=== PATIENT | female | born 1945 | race Caucasian/White ===

== ENCOUNTER 2017-07-20 07:53 | Day surgery (SDC) | payer OTHER ==
[2017-07-20] VITALS (14 sets, daily range): BP systolic 134–157; BP diastolic 71–98; PULSE 72–98; RESP 14–18; TEMP 97.5–98; O2SAT 94–98
[~2017-07-20] VITALS: Ht 167.6 cm; Wt 89.1 kg
[2017-07-20] MEDS ORDERED: VITA10002 PO (08:23)
[2017-07-20] MEDS ORDERED: MULT-65 PO (08:23)
[2017-07-20] MEDS ORDERED: MELO7.5T4 PO (08:23)
[2017-07-20] MEDS ORDERED: TRAM50TA PO (08:23)
[2017-07-20] MEDS ORDERED: CART300C PO (08:23)
[2017-07-20] MEDS ORDERED: APIX5TAB PO (08:23)
[2017-07-20] MEDS ORDERED: LOSA50TA PO (08:23)
[2017-07-20] MEDS ORDERED: CYMB60CA PO (08:23)
[2017-07-20] MEDS ORDERED: FURO1TAB62 PO (08:23)
[2017-07-20] MEDS ORDERED: LEVO175T2 PO (08:23)
[2017-07-20] MEDS ORDERED: TRIA37.5 PO (08:23)
[2017-07-20] MEDS ORDERED: METO25TA3 PO (08:23)
[2017-07-20] MEDS ORDERED: PROPOFOL 200 MG/20 ML AMP IV ONE (08:27)
[2017-07-20] MEDS ORDERED: ONDANSETRON HCL 4 MG/2 ML VIAL IV PUSH ONE (08:27)
[2017-07-20] MEDS ORDERED: LIDOCAINE HCL 1% PF 5 ML AMPULE OTHER ONE (08:27)
[2017-07-20] MEDS ORDERED: ROCURONIUM INJ 50 MG/5 ML SYRINGE IV PUSH ONE (08:27)
[2017-07-20] MEDS ORDERED: HEPARIN-D5W 25,000 U/250 ML 250 ML ONE (08:46)
[2017-07-20] MEDS ORDERED: ISOPROTERENOL HCL 1 MG/5 ML AMP ONE (08:46)
[2017-07-20] MEDS ORDERED: HEPARIN SODIUM - IV 10,000 UNITS/10 ML VIAL ONE (08:47)
[2017-07-20] MEDS ORDERED: PROTAMINE SULFATE 50 MG/5 ML VIAL ONE (08:47)
[2017-07-20] MEDS ORDERED: SODIUM CHLORID 0.9% 500 ML INJ 500 ML IV SCH (09:00)
[2017-07-20] MEDS ORDERED: HEPARIN-NS/PF INJ 2,000 ML ONE (09:13)
[2017-07-20] MEDS ORDERED: LEVOFLOXACIN 500 MG PREMIX INJ 100 ML IV ONE ×2 (09:13→09:15)
[2017-07-20] MEDS ORDERED: CHLORHEXIDINE GLUCONATE 2 % 1 PACK (2 CLOTHS) TOPICAL PRN (09:15)
[2017-07-20] MEDS ORDERED: INSULIN HUMAN REGULAR 1,000 UNITS/10 ML VIAL SQ PRN (09:15)
[2017-07-20] MEDS ORDERED: POVIDONE IODINE 5% (ANTISEPSIS KIT) 4 APPLICATIONS EACH NARE PRN (09:15)
[2017-07-20] MEDS ORDERED: METOPROLOL TARTRATE 25 MG TAB PO PRN (09:15)
[2017-07-20] MEDS ORDERED: LACTATED RINGER'S 1000 ML IV PRN (09:15)
[2017-07-20] MEDS ORDERED: LORazepam 1 MG TAB SL SCH (09:15)
[2017-07-20] MEDS ORDERED: SODIUM CHLORID 0.9% 500 ML IV PRN (09:15)
[2017-07-20 09:22] LABS: AUTOMATED NEUTROPHIL # 2.7 TH/MM3 (1.8-7.7); BASOPHIL # 0.1 TH/MM3 (0-0.2); BASOPHIL % 1.1 % (0.0-2.0); EOSINOPHIL # 0.2 TH/MM3 (0-0.4); EOSINOPHIL % 3.9 % (0.0-4.0); HEMATOCRIT 43.9 % (35.0-46.0); HEMOGLOBIN 14.8 GM/DL (11.6-15.3); LYMPH % 28.6 % (9.0-44.0); LYMPHOCYTE # 1.4 TH/MM3 (1.0-4.8); MEAN CELL VOLUME 88.6 FL (80.0-100.0); MEAN CORPUSCULAR HEMOGLOBIN 29.9 PG (27.0-34.0); MEAN CORPUSCULAR HGB CONC 33.8 % (32.0-36.0); MEAN PLATELET VOLUME 8.4 FL (7.0-11.0); MONO % 10.2 % (0.0-8.0); MONOCYTE # 0.5 TH/MM3 (0-0.9); NEUT % 56.2 % (16.0-70.0); PLATELET COUNT 190 TH/MM3 (150-450); RED BLOOD COUNT 4.95 MIL/MM3 (4.00-5.30); RED CELL DISTRIBUTION WIDTH 15.4 % (11.6-17.2); WHITE BLOOD COUNT 4.7 TH/MM3 (4.0-11.0)
[2017-07-20 09:29] LABS: PROTHROMBIN TIME - PATIENT 10.7 SEC (9.8-11.6)
[2017-07-20 09:31] LABS: BICARBONATE 26.8 MEQ/L (21.0-32.0); CALCIUM 8.9 MG/DL (8.5-10.1); CREATININE 0.78 MG/DL (0.50-1.00)
--- NOTE | 2017-07-20 11:50 | CATHPROC ---
[place] HIS Report Study Information Study Number Admission Scheduled Start Study Start [id number] Jul 20 2017 7:53AM 07/20/2017 Jul 20 2017 8:31AM [place] Service Electrophysiology Study Admit Source Facility Department Other [facility] Physician and Clinical Staff Initial Avery Chase [employer]ulatory Officers Gina Renner,WEB PUBLISHER Other Anesthesia, BUSHER HELPER Recorder Alin Bloom,JUAN JOSE Recorder Beth Colunga RN Scrub Bimal Barnes,RT(R) Procedures Performed Procedure Location (Site) Vessel Name Cardioversion ICE CATHETER INSERT RA Atruim RF Ablation LT. ATRIUM LT. ATRIUM Equipment Time Trekking Guide Description Size Mfg Part Number Used/Scraped NEEDLE, TRANSSEPTAL NRG 98 09:22 [facility] [id number] Used C1 [employer]/ EP 09:22 KIT, TRANSDUCER / AFIB [id number] Used PACER [id number] CATHETER, TACTICATH ABLAT BUNDLE 09:22 BUNDLE-[facility]. MASSIMO Used 65 BUNDLE *[id number]- BUNDLE [id number] CATHETER, FR7 OPTIMA SPIRAL 09:22 BUNDLE-[facility]. M[facility]IMO FR7 *[id number]- Used BUNDLE BUNDLE [id number] 09:22 BUNDLE-[employer] [employer]IMO CATHETER, JSN, QUAD BUNDLE FR 5 *[id number]- Used BUNDLE [id number] 09:22 BUNDLE-[employer]. [employer]IMO CATHETER, JSN, QUAD BUNDLE FR 5 *[id number]- Used BUNDLE [id number] SET, COOL POINT TUBING 09:22 BUNDLE-[employer]. MASSIMO *[id number]- Used BUNDLE BUNDLE SHEATH, FR8.5 STEERABLE SM 09:22 BUNDLE-[facility]. MASSIMO 71CM [id number] Used 71CM BUNDLE COVER, TRANSDUCER CABLE 09:22 Umami [id number] Used ACUNAV 09:22 CORDIS/PACER SHEATH, FR10 SUGEY 11CM FR 10 [id number] Used 09:22 CORDIS/PACER SHEATH, FR9 SUGEY 11CM FR 9 [id number] Used [id number] 09:22 MEDLINE INDUSTRIES PACK, CCL CUSTOM * Used *[id number] 09:22 MEDLINE PACER COLON, LIMB * 2530 *[id number] Used [id number] 09:22 [employer] MEDICAL SHEATH, FR4.5 PRELUDE 11CM FR 4.5 Used [id number] 09:22 NAMIC TUBING, HIGH PRESSURE 48" 48" Used *[id number] 09:22 NAMIC TUBING, HIGH PRESSURE 48" 48" Used *[id number] 09:22 [employer]UM[employer] MEDICAL BLANKET,WARM AIR CCL * Used *[id number] 09:22 [facility] MEDICAL ELECTRODE KIT, YAIR X SURFACE * [id number] Used [id number] 09:22 [facility] MEDICAL SHEATH, EPS, FR6 FAST CATH FR 6 Used *[id number] 09:22 [facility] MEDICAL SHEATH, EPS, FR7 FAST CATH FR 7 [id number] Used [id number] 09:22 [facility] MEDICAL SHEATH, EPS, FR8 FAST CATH FR 8 Used *[id number] CATHETER, ACUNAV FR10 ICE [id number] 10:15 BEVERLEY FR 10 Used (BEVERLEY) *[id number] [facility] PAD, ELECTROSURGICAL 09:22 * [id number] *[id number] Used SURGICAL GROUNDING (BLUE) History: Risk Factors Hypertension Yes Chronic Lung Disease Medication Medication Total Dose (Bolus/Oral) Medication Total Dosage/Unit 1% XYLOCAINE 40 mL HEPARIN 72570 units Medications (Bolus/Oral) Medication Time Given Dosage/Unit Administered By Reason 07/20/2017 10:07:14 1% XYLOCAINE 20 mL Avery Shelley AM 20 mL 1% XYLOCAINE given in lab by Avery Shelley in Left Groin via Subcutaneous. 07/20/2017 10:10:13 1% XYLOCAINE 20 mL Avery Shelley AM 20 mL 1% XYLOCAINE given in lab by Avery Shelley in Right Groin via Subcutaneous. 07/20/2017 10:16:00 HEPARIN 36755 units Anesthesia, BUSHER HELPER [place] [address] units HEPARIN given in lab by Anesthesia, BUSHER HELPER via Peripheral IV. Ordered by Avery Shelley. Kimberly son: As per physicians verbal order. 07/20/2017 11:09:00 HEPARIN 1000 units Anesthesia, BUSHER HELPER As per physicians verbal order AM 1000 units HEPARIN given in lab by Anesthesia, BUSHER HELPER via Peripheral IV. Ordered by vAery Shelley. Reas on: As per physicians verbal order. Medication (Drip) Medication Time Given Dosage/Unit Concentration/Unit Diluent (ml) Solution 07/20/2017 11:30:08 ISUPREL 20 mcg/min 1 mg 250 NaCl .9 AM 20 mcg/min ISUPREL given in lab by Anesthesia, BUSHER HELPER via Peripheral IV. Pump/Drip Flow = 300 ml/hr usi ng NaCl .9 with a concentration of 1 mg in 250 ml. Ordered by Avery Shelley. Initial Case Assessment Cardiovascular HR Rhythm NIBP Chest Pain 87 af 196/80 0 Edema Present Skin color Skin None Normal Warm Dry Circulatory - Right Pulses Dorsalis Pedis 1 Scale (0,1,2,3,4,d) Circulatory - Left Pulses Dorsalis Pedis 1 Scale (0,1,2,3,4,d) Circulatory - Lower Extremities Color Lower Right Color Lower Left Normal Normal Neurological State Oriented to time-place- Alert Moves all extremities person Respiration - General Respiration Rate SpO2 (%) (B/min) 18 99 Chronological Log Time Study Chronological Log 9::25 Patient arrived via Bed. 9::26 Patient Name, D.O.B, / Armband Verified By R.N. 9:: Consent signed by the physician and the patient and verified by the [facility] staff. 9:09:27 Pre-op and post- op instructions given; patient acknowledges understanding of instructions. 9:09:28 Verbal Stimulation=2 Physical Stimulation=2 Airway=2 Respiration=2 TOTAL=8. (0=absent, 1=li mited, 2=present) 9:09:38 Patient has been NPO for More than 6Hrs. 9:09:38 Skin Breakdown- r wrist post surgical site w scabs 9:10:00 Patient Warmer Placed on the Table. 9:10:00 Disposable Defibrillator Pads Placed On Patient. 9:10:01 Alfredo Prominences Protected 9:10:03 A # 20 IV was noted in the Antecubital (right). Grade = 0 9:10:04 A # 20 IV was noted in the Antecubital (left). Grade = 0 9:10:05 History and physical on the chart or being dictated. 9:19:54 Table restraints applied according to hospital policy 9:22:32 Anesthesia at bedside. Assumes care of patient. See Flow sheet for meds and vitals Assessment: Initial Case, HR=87 BPM, Rhythm=af, JGAO=375/80 mmhg, Chest Pain=0, Edema=None, Col or=Normal, Skin = Warm, Dry Right Pulses: Abel Ped=1 Left Pulses: Abel Ped=1 9:36:07 Lower Right Extremities: Color=Normal Lower Left Extremities: Color=Normal Neurological: State=Alert, Ox3, SALINAS Respiration: Resp=18 B/min, SpO2=99 % 9:37:25 Table restraints applied according to hospital policy 9:37:41 Anesthestist present for intubation 9:37:54 St Massmio rep present 9:38:09 Right groin prepped with 2% chlorhexidine, and draped after a 3 min. waiting time. 9:38:39 MD paged 9:42:43 Reference ECG taken 9:59:07 MD arrived. Time Out. Correct patient, procedure, procedure equipment, site and side verified with physicia n present. Time 10:03:00 concurred by MD, individual staff and BUSHER HELPER. Time Out #2 - Consents verified, patient in correct position, all results are labled and displa yed, safety precautions 10:03:29 taken, antibiotics administered. Time out concurred by MD, individual staff and BUSHER HELPER in procedu re 10:03:45 Case Start 10:03:54 JANAK in progress. 10:06:04 Janak complete 10:07:14 20 mL 1% XYLOCAINE given in lab by Avery Shelley in Left Groin via Subcutaneous. 10:07:21 Vascular access was obtained in the Fem Vein (left). 10:07:24 Vascular access was obtained in the Fem Vein (left). 10:07:28 Vascular access was obtained in the Fem Vein (left). 10:07:38 Vascular access was obtained in the Fem Art (left). 10:07:50 A SHEATH, FR4.5 PRELUDE 11CM FR 4.5 was advanced into the Fem Art (left) using the Modified Seldinger technique. 10:08:35 A SHEATH, EPS, FR6 FAST CATH FR 6 was advanced into the Fem Vein (left) using the Modified Seldinger technique. 10:08:43 A SHEATH, EPS, FR7 FAST CATH FR 7 was advanced into the Fem Vein (left) using the Modified Seldinger technique. 10:08:51 A SHEATH, FR10 SUGEY 11CM FR 10 was advanced into the Fem Vein (left) using the Modified S eldinger technique. 10:10:13 20 mL 1% XYLOCAINE given in lab by Avery Shelley in Right Groin via Subcutaneous. 10:10:49 Vascular access was obtained in the Fem Vein (right). 10:10:54 A SHEATH, EPS, FR8 FAST CATH FR 8 was advanced into the Fem Vein (right) using the Modified Seldinger technique. A SHEATH, FR8.5 STEERABLE SM 71CM BUNDLE 71CM was exchanged in the Fem Vein (right). This was n ecessary in 10:12:17 order for catheter support. A CATHETER, JSN, QUAD BUNDLE FR 5 was advanced vis Fem Vein (left) and placed in the CS. Placem ent was visually 10:13:00 confirmed under fluoroscopy. A CATHETER, JSN, QUAD BUNDLE FR 5 was advanced vis Fem Vein (left) and placed in the HIS. Place ment was 10:13:48 visually confirmed under fluoroscopy. 10:14:32 CATHETER, ACUNAV FR10 ICE (Last Guide) FR 10 Was Postioned. 10:15:31 [place] in 10:15:50 A eps was advanced to the right atrium and passed through the septal wall to [place]. 95[address] units HEPARIN given in lab by Anesthesia, BUSHER HELPER via Peripheral IV. Ordered by Zain Shelley Reason: As per 10:16:00 physicians verbal order. 10:16:30 [place] out A CATHETER, FR7 OPTIMA SPIRAL BUNDLE FR7 was advanced vis Fem Vein (right) and placed in the L A. Placement 10:17:00 was visually confirmed under fluoroscopy. Mapping in progress. 10:21:55 Activated Clotting Time Drawn 10:30:01 ACT (Normal Range 90-180) = 436 10:34:18 Mapping complete. Catheter was removed A CATHETER, TACTICATH ABLAT 65 BUNDLE was advanced vis Fem Vein (right) and placed in the LA. Placement was 10:34:53 visually confirmed under fluoroscopy. 10:35:03 RF Ablation of the LT. ATRIUM with a CATHETER, TACTICATH ABLAT 65 BUNDLE. 10:45:49 Activated Clotting Time Drawn 10:53:06 ACT (Normal Range 90-180) = 399 11:00:47 Activated Clotting Time Drawn 11:07:44 ACT (Normal Range 90-180) = 342 1000 units HEPARIN given in lab by Anesthesia, BUSHER HELPER via Peripheral IV. Ordered by Zain Shelley Reason: As per 11:09:00 physicians verbal order. 11:24:37 Ablation Catheter was removed 11:25:25 Activated Clotting Time Drawn 11:27:03 ECG rhythm of AF noted. Patient cardioverted at 200 joules. Success synch. SR noted post. 20 mcg/min ISUPREL given in lab by Anesthesia, BUSHER HELPER via Peripheral IV. Pump/Drip Flow = 300 ml /hr using NaCl .9 11:30:08 with a concentration of 1 mg in 250 ml. Ordered by Avery Shelley. 11:32:52 ACT (Normal Range 90-180) = 386 11:40:28 isuprel off 11:46:10 Catheter(s) removed without difficulty A SHEATH, FR9 SUGEY 11CM FR 9 was exchanged in the Fem Vein (right). This was necessary in or mariah to achieve 11:48:36 vascular hemostasis. 11:49:05 Case End 11:49:09 No case complications noted. 11:49:14 Holding Area notified of successful intervention. 12:10:00 Patient moved to [facility] End Study - Contrast Media Used In Study Contrast Total Opened (mL) Total Used (mL) Total Wasted (mL) Unspecified 0 0 0 End Study - Radiation Exposure Fluoro Time (minutes) 0.4 End Study - Patient Disposition Complications Transferred To Interventional Outcome No Telemetry Bed successful
--- NOTE | 2017-07-20 11:50 | CATHPROC ---
[place] HIS Report Study Information Study Number Admission Scheduled Start Study Start [id number] Jul 20 2017 7:53AM 07/20/2017 Jul 20 2017 8:31AM [place] Service Electrophysiology Study Admit Source Facility Department Other [facility] Physician and Clinical Staff Initial Avery Chase Pit Steward Gina Renner,SENIOR WEB ARCHITECT Other Anesthesia, DIRECTOR ADVANCED Recorder Alin Bloom,JUAN JOSE Recorder Beth Colunga RN Scrub Bimal Barnes,RT(R) Procedures Performed Procedure Location (Site) Vessel Name Cardioversion ICE CATHETER INSERT RA Atruim RF Ablation LT. ATRIUM LT. ATRIUM Equipment Time Process Developer Description Size Mfg Part Number Used/Scraped NEEDLE, TRANSSEPTAL NRG 98 09:22 [facility] [id number] Used C1 [employer]/ EP 09:22 KIT, TRANSDUCER / AFIB [id number] Used PACER [id number] CATHETER, TACTICATH ABLAT BUNDLE 09:22 BUNDLE-[facility]. MASSIMO Used 65 BUNDLE *[id number]- BUNDLE [id number] CATHETER, FR7 OPTIMA SPIRAL 09:22 BUNDLE-[facility]. MASSIMO FR7 *[id number]- Used BUNDLE BUNDLE [id number] 09:22 BUNDLE-[employer]. MASSIMO CATHETER, JSN, QUAD BUNDLE FR 5 *[id number]- Used BUNDLE [id number] 09:22 BUNDLE-[employer]. MASSIMO CATHETER, JSN, QUAD BUNDLE FR 5 *[id number]- Used BUNDLE 20152-HKIPUM SET, COOL POINT TUBING 09:22 BUNDLE-[employer]. MASSIMO *[id number]- Used BUNDLE BUNDLE SHEATH, FR8.5 STEERABLE SM 09:22 BUNDLE-[employer]. MASSIMO 71CM [id number] Used 71CM BUNDLE COVER, TRANSDUCER CABLE 09:22 [employer] [id number] Used ACUNAV 09:22 CORDIS/PACER SHEATH, FR10 SUGEY 11CM FR 10 [id number] Used 09:22 CORDIS/PACER SHEATH, FR9 SUGEY 11CM FR 9 [id number] Used [id number] 09:22 MEDLINE [employer] PACK, CCL CUSTOM * Used *[id number] 09:22 MEDLINE PACER COLON, LIMB * 2530 *[id number] Used [id number]- 09:22 [employer] MEDICAL SHEATH, FR4.5 PRELUDE 11CM FR 4.5 Used [id number] [id number] 09:22 NAMIC TUBING, HIGH PRESSURE 48" 48" Used *[id number] 09:22 NAMIC TUBING, HIGH PRESSURE 48" 48" Used *[id number] 09:22 [employer] MEDICAL BLANKET,WARM AIR CCL * Used *[id number] 09:22 [facility] MEDICAL ELECTRODE KIT, YAIR X SURFACE * [id number] Used [id number] 09:22 [facility] MEDICAL SHEATH, EPS, FR6 FAST CATH FR 6 Used *[id number] 09:22 [facility] MEDICAL SHEATH, EPS, FR7 FAST CATH FR 7 [id number] Used 826735 09:22 [facility] MEDICAL SHEATH, EPS, FR8 FAST CATH FR 8 Used *[id number] CATHETER, ACUNAV FR10 ICE [id number] 10:15 BEVERLEY FR 10 Used (BEVERLEY) *[id number] [facility] PAD, ELECTROSURGICAL 09:22 * [id number] *[id number] Used SURGICAL GROUNDING (BLUE) History: Risk Factors Hypertension Yes Chronic Lung Disease Medication Medication Total Dose (Bolus/Oral) Medication Total Dosage/Unit 1% XYLOCAINE 40 mL HEPARIN 96609 units Medications (Bolus/Oral) Medication Time Given Dosage/Unit Administered By Reason 07/20/2017 10:07:14 1% XYLOCAINE 20 mL Avery Shelley AM 20 mL 1% XYLOCAINE given in lab by Avery Shelley in Left Groin via Subcutaneous. 07/20/2017 10:10:13 1% XYLOCAINE 20 mL Avery Shelley AM 20 mL 1% XYLOCAINE given in lab by Avery Shelley in Right Groin via Subcutaneous. 07/20/2017 10:16:00 HEPARIN 63011 units Anesthesia, DIRECTOR ADVANCED [place] [address] units HEPARIN given in lab by Anesthesia, DIRECTOR ADVANCED via Peripheral IV. Ordered by Avery Shelley. Kimberly son: As per physicians verbal order. 07/20/2017 11:09:00 HEPARIN 1000 units Anesthesia, DIRECTOR ADVANCED As per physicians verbal order AM 1000 units HEPARIN given in lab by Anesthesia, DIRECTOR ADVANCED via Peripheral IV. Ordered by Avery Shelley. Reas on: As per physicians verbal order. Medication (Drip) Medication Time Given Dosage/Unit Concentration/Unit Diluent (ml) Solution 07/20/2017 11:30:08 ISUPREL 20 mcg/min 1 mg 250 NaCl .9 AM 20 mcg/min ISUPREL given in lab by Anesthesia, DIRECTOR ADVANCED via Peripheral IV. Pump/Drip Flow = 300 ml/hr usi ng NaCl .9 with a concentration of 1 mg in 250 ml. Ordered by Avery Shelley. Initial Case Assessment Cardiovascular HR Rhythm NIBP Chest Pain 87 af 196/80 0 Edema Present Skin color Skin None Normal Warm Dry Circulatory - Right Pulses Dorsalis Pedis 1 Scale (0,1,2,3,4,d) Circulatory - Left Pulses Dorsalis Pedis 1 Scale (0,1,2,3,4,d) Circulatory - Lower Extremities Color Lower Right Color Lower Left Normal Normal Neurological State Oriented to time-place- Alert Moves all extremities person Respiration - General Respiration Rate SpO2 (%) (B/min) 18 99 Chronological Log Time Study Chronological Log 9::25 Patient arrived via Bed. 9::26 Patient Name, D.O.B, / Armband Verified By R.N. 9:: Consent signed by the physician and the patient and verified by the [facility] staff. 9:09:27 Pre-op and post- op instructions given; patient acknowledges understanding of instructions. 9:09:28 Verbal Stimulation=2 Physical Stimulation=2 Airway=2 Respiration=2 TOTAL=8. (0=absent, 1=li mited, 2=present) 9:09:38 Patient has been NPO for More than 6Hrs. 9:09:38 Skin Breakdown- r wrist post surgical site w scabs 9:10:00 Patient Warmer Placed on the Table. 9:10:00 Disposable Defibrillator Pads Placed On Patient. 9:10:01 Alfredo Prominences Protected 9:10:03 A # 20 IV was noted in the Antecubital (right). Grade = 0 9:10:04 A # 20 IV was noted in the Antecubital (left). Grade = 0 9:10:05 History and physical on the chart or being dictated. 9:19:54 Table restraints applied according to hospital policy 9:22:32 Anesthesia at bedside. Assumes care of patient. See Flow sheet for meds and vitals Assessment: Initial Case, HR=87 BPM, Rhythm=af, YOTT=991/80 mmhg, Chest Pain=0, Edema=None, Col or=Normal, Skin = Warm, Dry Right Pulses: Abel Ped=1 Left Pulses: Abel Ped=1 9:36:07 Lower Right Extremities: Color=Normal Lower Left Extremities: Color=Normal Neurological: State=Alert, Ox3, SALINAS Respiration: Resp=18 B/min, SpO2=99 % 9:37:25 Table restraints applied according to hospital policy 9:37:41 Anesthestist present for intubation 9:37:54 St Massimo rep present 9:38:09 Right groin prepped with 2% chlorhexidine, and draped after a 3 min. waiting time. 9:38:39 MD paged 9:42:43 Reference ECG taken 9:59:07 MD arrived. Time Out. Correct patient, procedure, procedure equipment, site and side verified with physicia n present. Time 10:03:00 concurred by MD, individual staff and DIRECTOR ADVANCED. Time Out #2 - Consents verified, patient in correct position, all results are labled and displa yed, safety precautions 10:03:29 taken, antibiotics administered. Time out concurred by MD, individual staff and DIRECTOR ADVANCED in procedu re 10:03:45 Case Start 10:03:54 JANAK in progress. 10:06:04 Janak complete 10:07:14 20 mL 1% XYLOCAINE given in lab by Avery Shelley in Left Groin via Subcutaneous. 10:07:21 Vascular access was obtained in the Fem Vein (left). 10:07:24 Vascular access was obtained in the Fem Vein (left). 10:07:28 Vascular access was obtained in the Fem Vein (left). 10:07:38 Vascular access was obtained in the Fem Art (left). 10:07:50 A SHEATH, FR4.5 PRELUDE 11CM FR 4.5 was advanced into the Fem Art (left) using the Modified Seldinger technique. 10:08:35 A SHEATH, EPS, FR6 FAST CATH FR 6 was advanced into the Fem Vein (left) using the Modified Seldinger technique. 10:08:43 A SHEATH, EPS, FR7 FAST CATH FR 7 was advanced into the Fem Vein (left) using the Modified Seldinger technique. 10:08:51 A SHEATH, FR10 SUGEY 11CM FR 10 was advanced into the Fem Vein (left) using the Modified S eldinger technique. 10:10:13 20 mL 1% XYLOCAINE given in lab by Avery Shelley in Right Groin via Subcutaneous. 10:10:49 Vascular access was obtained in the Fem Vein (right). 10:10:54 A SHEATH, EPS, FR8 FAST CATH FR 8 was advanced into the Fem Vein (right) using the Modified Seldinger technique. A SHEATH, FR8.5 STEERABLE SM 71CM BUNDLE 71CM was exchanged in the Fem Vein (right). This was n ecessary in 10:12:17 order for catheter support. A CATHETER, JSN, QUAD BUNDLE FR 5 was advanced vis Fem Vein (left) and placed in the CS. Placem ent was visually 10:13:00 confirmed under fluoroscopy. A CATHETER, JSN, QUAD BUNDLE FR 5 was advanced vis Fem Vein (left) and placed in the HIS. Place ment was 10:13:48 visually confirmed under fluoroscopy. 10:14:32 CATHETER, ACUNAV FR10 ICE ([place]) FR 10 Was Postioned. 10:15:31 Jay in 10:15:50 A eps was advanced to the right atrium and passed through the septal wall [place]. 29[address] units HEPARIN given in lab by Anesthesia, DIRECTOR ADVANCED via Peripheral IV. Ordered by Zain Shelley Reason: As per 10:16:00 physicians verbal order. 10:16:30 Jay out A CATHETER, FR7 OPTIMA SPIRAL BUNDLE FR7 was advanced vis Fem Vein (right) and placed in the L A. Placement 10:17:00 was visually confirmed under fluoroscopy. Mapping in progress. 10:21:55 Activated Clotting Time Drawn 10:30:01 ACT (Normal Range 90-180) = 436 10:34:18 Mapping complete. Catheter was removed A CATHETER, TACTICATH ABLAT 65 BUNDLE was advanced vis Fem Vein (right) and placed in the LA. Placement was 10:34:53 visually confirmed under fluoroscopy. 10:35:03 RF Ablation of the LT. ATRIUM with a CATHETER, TACTICATH ABLAT 65 BUNDLE. 10:45:49 Activated Clotting Time Drawn 10:53:06 ACT (Normal Range 90-180) = 399 11:00:47 Activated Clotting Time Drawn 11:07:44 ACT (Normal Range 90-180) = 342 1000 units HEPARIN given in lab by Anesthesia, DIRECTOR ADVANCED via Peripheral IV. Ordered by Zain Shelley Reason: As per 11:09:00 physicians verbal order. 11:24:37 Ablation Catheter was removed 11:25:25 Activated Clotting Time Drawn 11:27:03 ECG rhythm of AF noted. Patient cardioverted at 200 joules. Success synch. SR noted post. 20 mcg/min ISUPREL given in lab by Anesthesia, DIRECTOR ADVANCED via Peripheral IV. Pump/Drip Flow = 300 ml /hr using NaCl .9 11:30:08 with a concentration of 1 mg in 250 ml. Ordered by Avery Shelley. 11:32:52 ACT (Normal Range 90-180) = 386 11:40:28 isuprel off 11:46:10 Catheter(s) removed without difficulty A SHEATH, FR9 SUGEY 11CM FR 9 was exchanged in the Fem Vein (right). This was necessary in or mariah to achieve 11:48:36 vascular hemostasis. 11:49:05 Case End 11:49:09 No case complications noted. 11:49:14 Holding Area notified of successful intervention. 12:10:00 Patient moved to [facility] End Study - Contrast Media Used In Study Contrast Total Opened (mL) Total Used (mL) Total Wasted (mL) Unspecified 0 0 0 End Study - Radiation Exposure Fluoro Time (minutes) 0.4 End Study - Patient Disposition Complications Transferred To Interventional Outcome No Telemetry Bed successful
--- NOTE | 2017-07-20 11:50 | CATHPROC ---
[employer] HIS Report Study Information Study Number Admission Scheduled Start Study Start [id number] Jul 20 2017 7:53AM 07/20/2017 Jul 20 2017 8:31AM [place] Service Electrophysiology Study Admit Source Facility Department Other [facility] - Manager Merchandising Physician and Clinical Staff Initial Avery Chase Plywood Scarfer Tender Gina Renner,SKIING INSTRUCTOR Other Anesthesia, ENVIRONMENTAL PROFESSIONAL Recorder Alin Bloom,JUAN JOSE Recorder Beth Colunga RN Scrub Bimal Barnes,RT(R) Procedures Performed Procedure Location (Site) Vessel Name Cardioversion ICE CATHETER INSERT RA Atruim RF Ablation LT. ATRIUM LT. ATRIUM Equipment Time [employer] Counselor Description Size Mfg Part Number Used/Scraped NEEDLE, TRANSSEPTAL NRG 98 09:22 [facility] [id number] Used C1 [employer]/ EP 09:22 KIT, TRANSDUCER / AFIB [id number] Used PACER [id number] CATHETER, TACTICATH ABLAT BUNDLE 09:22 BUND[facility] MASSIMO Used 65 BUNDLE *[id number] BUNDLE [id number] CATHETER, FR7 OPTIMA SPIRAL 09:22 BUNDLE-[facility] M[facility]IMO FR7 *[id number] Used BUNDLE BUNDLE [id number] 09:22 BUNDLE-[employer] M[facility]IMO CATHETER, JSN, QUAD BUNDLE FR 5 *[id number]- Used BUNDLE [id number] 09:22 BUNDLE-[employer]. MASSIMO CATHETER, JSN, QUAD BUNDLE FR 5 *[id number]- Used BUNDLE [id number] SET, COOL POINT TUBING 09:22 BUNDLE-[employer]. MASSIMO *[id number] Used BUNDLE BUNDLE SHEATH, FR8.5 STEERABLE SM 09:22 BUNDLE-ST. MASSIMO 71CM [id number] Used 71CM BUNDLE COVER, TRANSDUCER CABLE 09:22 Bet[employer]rand [id number] Used ACUNAV 09:22 CORDIS/PACER SHEATH, FR10 SUGEY 11CM FR 10 [id number] Used 09:22 CORDIS/PACER SHEATH, FR9 SUGEY 11CM FR 9 [id number] Used [id number] 09:22 MED[employer] PACK, CCL CUSTOM * Used *[id number] 09:22 MEDLINE PACER COLON, LIMB * 2530 *[id number] Used [id number] 09:22 [employer] MEDICAL SHEATH, FR4.5 PRELUDE 11CM FR 4.5 Used [id number] 09:22 NAMIC TUBING, HIGH PRESSURE 48" 48" Used *[id number] 09:22 NAMIC TUBING, HIGH PRESSURE 48" 48" Used *[id number] 09:22 [employer] MEDICAL BLANKET,WARM AIR CCL * Used *[id number] 09:22 [facility] MEDICAL ELECTRODE KIT, YAIR X SURFACE * [id number] Used [id number] 09:22 [facility] MEDICAL SHEATH, EPS, FR6 FAST CATH FR 6 Used *[id number] 09:22 [facility] MEDICAL SHEATH, EPS, FR7 FAST CATH FR 7 [id number] Used [id number] 09:22 [facility] MEDICAL SHEATH, EPS, FR8 FAST CATH FR 8 Used *[id number] CATHETER, ACUNAV FR10 ICE [id number] 10:15 BEVERLEY FR 10 Used (BEVERLEY) *[id number] [facility] PAD, ELECTROSURGICAL 09:22 * [id number] *[id number] Used SURGICAL GROUNDING (BLUE) History: Risk Factors Hypertension Yes Chronic Lung Disease Medication Medication Total Dose (Bolus/Oral) Medication Total Dosage/Unit 1% XYLOCAINE 40 mL HEPARIN 41414 units Medications (Bolus/Oral) Medication Time Given Dosage/Unit Administered By Reason 07/20/2017 10:07:14 1% XYLOCAINE 20 mL Avery Shelley AM 20 mL 1% XYLOCAINE given in lab by Avery Shelley in Left Groin via Subcutaneous. 07/20/2017 10:10:13 1% XYLOCAINE 20 mL Avery Shelley AM 20 mL 1% XYLOCAINE given in lab by Avery Shelley in Right Groin via Subcutaneous. 07/20/2017 10:16:00 HEPARIN 92076 units Anesthesia, ENVIRONMENTAL PROFESSIONAL [place] [address] units HEPARIN given in lab by Anesthesia, ENVIRONMENTAL PROFESSIONAL via Peripheral IV. Ordered by Avery Shelley. Kimberly son: As per physicians verbal order. 07/20/2017 11:09:00 HEPARIN 1000 units Anesthesia, ENVIRONMENTAL PROFESSIONAL As per physicians verbal order AM 1000 units HEPARIN given in lab by Anesthesia, ENVIRONMENTAL PROFESSIONAL via Peripheral IV. Ordered by Avery Shelley. Reas on: As per physicians verbal order. Medication (Drip) Medication Time Given Dosage/Unit Concentration/Unit Diluent (ml) Solution 07/20/2017 11:30:08 ISUPREL 20 mcg/min 1 mg 250 NaCl .9 AM 20 mcg/min ISUPREL given in lab by Anesthesia, ENVIRONMENTAL PROFESSIONAL via Peripheral IV. Pump/Drip Flow = 300 ml/hr usi ng NaCl .9 with a concentration of 1 mg in 250 ml. Ordered by Avery Shelley. Initial Case Assessment Cardiovascular HR Rhythm NIBP Chest Pain 87 af 196/80 0 Edema Present Skin color Skin None Normal Warm Dry Circulatory - Right Pulses Dorsalis Pedis 1 Scale (0,1,2,3,4,d) Circulatory - Left Pulses Dorsalis Pedis 1 Scale (0,1,2,3,4,d) Circulatory - Lower Extremities Color Lower Right Color Lower Left Normal Normal Neurological State Oriented to time-place- Alert Moves all extremities person Respiration - General Respiration Rate SpO2 (%) (B/min) 18 99 Chronological Log Time Study Chronological Log 9::25 Patient arrived via Bed. 9::26 Patient Name, D.O.B, / Armband Verified By R.N. 9:: Consent signed by the physician and the patient and verified by the Manager Merchandising staff. 9:09:27 Pre-op and post- op instructions given; patient acknowledges understanding of instructions. 9:09:28 Verbal Stimulation=2 Physical Stimulation=2 Airway=2 Respiration=2 TOTAL=8. (0=absent, 1=li mited, 2=present) 9:09:38 Patient has been NPO for More than 6Hrs. 9:09:38 Skin Breakdown- r wrist post surgical site w scabs 9:10:00 Patient Warmer Placed on the Table. 9:10:00 Disposable Defibrillator Pads Placed On Patient. 9:10:01 Alfredo Prominences Protected 9:10:03 A # 20 IV was noted in the Antecubital (right). Grade = 0 9:10:04 A # 20 IV was noted in the Antecubital (left). Grade = 0 9:10:05 History and physical on the chart or being dictated. 9:19:54 Table restraints applied according to hospital policy 9:22:32 Anesthesia at bedside. Assumes care of patient. See Flow sheet for meds and vitals Assessment: Initial Case, HR=87 BPM, Rhythm=af, JTYD=825/80 mmhg, Chest Pain=0, Edema=None, Col or=Normal, Skin = Warm, Dry Right Pulses: Abel Ped=1 Left Pulses: Abel Ped=1 9:36:07 Lower Right Extremities: Color=Normal Lower Left Extremities: Color=Normal Neurological: State=Alert, Ox3, SALINAS Respiration: Resp=18 B/min, SpO2=99 % 9:37:25 Table restraints applied according to hospital policy 9:37:41 Anesthestist present for intubation 9:37:54 [facility] Massimo rep present 9:38:09 Right groin prepped with 2% chlorhexidine, and draped after a 3 min. waiting time. 9:38:39 MD paged 9:42:43 Reference ECG taken 9:59:07 MD arrived. Time Out. Correct patient, procedure, procedure equipment, site and side verified with physicia n present. Time 10:03:00 concurred by MD, individual staff and ENVIRONMENTAL PROFESSIONAL. Time Out #2 - Consents verified, patient in correct position, all results are labled and displa yed, safety precautions 10:03:29 taken, antibiotics administered. Time out concurred by MD, individual staff and ENVIRONMENTAL PROFESSIONAL in procedu re 10:03:45 Case Start 10:03:54 JANAK in progress. 10:06:04 Janak complete 10:07:14 20 mL 1% XYLOCAINE given in lab by Avery Shelley in Left Groin via Subcutaneous. 10:07:21 Vascular access was obtained in the Fem Vein (left). 10:07:24 Vascular access was obtained in the Fem Vein (left). 10:07:28 Vascular access was obtained in the Fem Vein (left). 10:07:38 Vascular access was obtained in the Fem Art (left). 10:07:50 A SHEATH, FR4.5 PRELUDE 11CM FR 4.5 was advanced into the Fem Art (left) using the Modified Seldinger technique. 10:08:35 A SHEATH, EPS, FR6 FAST CATH FR 6 was advanced into the Fem Vein (left) using the Modified Seldinger technique. 10:08:43 A SHEATH, EPS, FR7 FAST CATH FR 7 was advanced into the Fem Vein (left) using the Modified Seldinger technique. 10:08:51 A SHEATH, FR10 SUGEY 11CM FR 10 was advanced into the Fem Vein (left) using the Modified S eldinger technique. 10:10:13 20 mL 1% XYLOCAINE given in lab by Avery Shelley in Right Groin via Subcutaneous. 10:10:49 Vascular access was obtained in the Fem Vein (right). 10:10:54 A SHEATH, EPS, FR8 FAST CATH FR 8 was advanced into the Fem Vein (right) using the Modified Seldinger technique. A SHEATH, FR8.5 STEERABLE SM 71CM BUNDLE 71CM was exchanged in the Fem Vein (right). This was n ecessary in 10:12:17 order for catheter support. A CATHETER, JSN, QUAD BUNDLE FR 5 was advanced vis Fem Vein (left) and placed in the CS. Placem ent was visually 10:13:00 confirmed under fluoroscopy. A CATHETER, JSN, QUAD BUNDLE FR 5 was advanced vis Fem Vein (left) and placed in the HIS. Place ment was 10:13:48 visually confirmed under fluoroscopy. 10:14:32 CATHETER, ACUNAV FR10 ICE ([employer]) FR 10 Was Postioned. 10:15:31 [place] in 10:15:50 A eps was advanced to the right atrium and passed through the septal [place]. [address] units HEPARIN given in lab by Anesthesia, ENVIRONMENTAL PROFESSIONAL via Peripheral IV. Ordered by Zain Shelley Reason: As per 10:16:00 physicians verbal order. 10:16:30 Henniker out A CATHETER, FR7 OPTIMA SPIRAL BUNDLE FR7 was advanced vis Fem Vein (right) and placed in the L A. Placement 10:17:00 was visually confirmed under fluoroscopy. Mapping in progress. 10:21:55 Activated Clotting Time Drawn 10:30:01 ACT (Normal Range 90-180) = 436 10:34:18 Mapping complete. Catheter was removed A CATHETER, TACTICATH ABLAT 65 BUNDLE was advanced vis Fem Vein (right) and placed in the LA. Placement was 10:34:53 visually confirmed under fluoroscopy. 10:35:03 RF Ablation of the LT. ATRIUM with a CATHETER, TACTICATH ABLAT 65 BUNDLE. 10:45:49 Activated Clotting Time Drawn 10:53:06 ACT (Normal Range 90-180) = 399 11:00:47 Activated Clotting Time Drawn 11:07:44 ACT (Normal Range 90-180) = 342 1000 units HEPARIN given in lab by Anesthesia, ENVIRONMENTAL PROFESSIONAL via Peripheral IV. Ordered by Zain Shelley Reason: As per 11:09:00 physicians verbal order. 11:24:37 Ablation Catheter was removed 11:25:25 Activated Clotting Time Drawn 11:27:03 ECG rhythm of AF noted. Patient cardioverted at 200 joules. Success synch. SR noted post. 20 mcg/min ISUPREL given in lab by Anesthesia, ENVIRONMENTAL PROFESSIONAL via Peripheral IV. Pump/Drip Flow = 300 ml /hr using NaCl .9 11:30:08 with a concentration of 1 mg in 250 ml. Ordered by Avery Shelley. 11:32:52 ACT (Normal Range 90-180) = 386 11:40:28 isuprel off 11:46:10 Catheter(s) removed without difficulty A SHEATH, FR9 SUGEY 11CM FR 9 was exchanged in the Fem Vein (right). This was necessary in or mariah to achieve 11:48:36 vascular hemostasis. 11:49:05 Case End 11:49:09 No case complications noted. 11:49:14 Holding Area notified of successful intervention. 12:10:00 Patient moved to [facility] End Study - Contrast Media Used In Study Contrast Total Opened (mL) Total Used (mL) Total Wasted (mL) Unspecified 0 0 0 End Study - Radiation Exposure Fluoro Time (minutes) 0.4 End Study - Patient Disposition Complications Transferred To Interventional Outcome No Telemetry Bed successful
--- NOTE | 2017-07-20 11:54 | PD.CARD ---
Atrial Fibrillation Ablation PROCEDURE DATE: Jul 20, 2017 PROCEDURES PERFORMED: 1. Electrophysiology study on Isuprel infusion 2. CS cannulation 3. 3-D mapping 4. Transseptal approach 5. Right and left heart catheterization 6. Intracardiac echo 7. Radiofrequency ablation of atrial fibrillation 8. Pulmonary vein isolation 9. Posterior wall ablation 10. Mitral valve isolation 11. Mitral line creation 12. Left atrial tachycardia ablation 13. Roof line creation 14. Floor line creation 15. Anterior wall ablation 16. Cardioversion INDICATIONS FOR THE PROCEDURE Ms. Ball is a 72-year-old female with atrial fibrillation, very symptomatic, on anticoagulation referred for electrophysiology study and ablation. The risks, the nature and the benefits of the procedure were clearly stated to her. The risks include pneumothorax, cardiac perforation, stroke, need for open heart surgery and even . The patient understood and agreed to proceed. DESCRIPTION OF THE PROCEDURE IN DETAIL As written informed consent was obtained prior to esophageal echocardiogram, the patient was kept on the table where she was prepped and draped in the usual sterile fashion. Conscious sedation was initiated and maintained throughout the procedure by the anesthesiologist. Once sedation was verified, the right and left inguinal areas were anesthetized with 2% Xylocaine. Using modified Seldinger technique, the left femoral vein was cannulated on three occasions, three guidewires were advanced. Over the wire a 6, 7 and a 10-Peruvian Hemaquet were advanced. Then the left femoral artery was cannulated on one occasion, one guidewire was advanced. Over the wire a 4-Peruvian Hemaquet was advanced. Then the right femoral vein was cannulated on one occasion, one guidewire was advanced. Over the wire a 8-Peruvian Hemaquet was advanced. Then under fluoroscopic guidance through the 6 and 7-Peruvian Hemaquet, two 5-Peruvian Olinda curved quadripolar electrophysiology catheters were advanced and placed around the His as well as coronary sinus. Basic interval was measured. The patient was in atrial fibrillation. Through the 10-Peruvian Hemaquet, a [employer] Meek AcuNav intracardiac echo catheter was advanced and placed at the right atrium. Multiple view was obtained. There is no pericardial effusion, pulmonary vein was seen, atrial septal was visualized. Then the 8-Peruvian Hemaquet in the right femoral vein was exchanged for [employer] transseptal sheath that was placed all the way to the superior vena cava. Through the sheath a Capo needle was advanced, then the sheath, the dilator and the needle were progressed until foci engaged. Once engaged, the needle was advanced. RF was delivered for 2 seconds. I was able to cross into the left atrium. Once the needle crossed, the dilator was advanced. Once the dilator crossed, the sheath was advanced. Once the sheath crossed, the dilator and the needle were removed. At this point I did flood the system and fluid movement was seen in the left atrium the indicates the sheath is in good position. The patient already received 10,000 units of heparin. The goal is to keep an ACT around 350 during ablation. Then through the sheath a St. Héctor 20 pulse circumferential catheter was advanced. Using [employer] endocardial solution mapping system, a two-dimensional configuration of the left atrium was obtained. Points were taken at the left superior and inferior veins, right superior and inferior veins, mitral valve, and appendages. Then through the sheath a St. Héctor TactiCath 65cm 3.5mm irrigated tipped mapping and radiofrequency ablation catheter was advanced. Esophageal probe was placed temperature monitoring during ablation. When it increased to 0.5 degrees Celsius above baseline, I moved to a different area of the atrium. First I did isolate the left superior and inferior vein. I did make a big [place] around the veins. Posterior was ablated. Then a roof line was created, a floor line was created, a mitral line was isolated, then the mitral valve was isolated. At that point the patient was in left atrial tachycardia. I did create a line from the floor to the roof area, passing by the left atrial appendage. Then the right superior and inferior veins were isolated. I did remap the atrium. There is no significant signal in the atrium. At this point I decided to proceed with cardioversion. A 200 sync biphasic joule was delivered that converted the patient into sinus rhythm. At that point I did advance the circumferential catheter again into the vein. There was no signal into the vein, pacing from the vein showed no conduction to the atrium. Isuprel infusion was initiated at 10 mcg for 15 minutes. No tachyarrhythmia was induced, post Isuprel no tachyarrhythmia was induced. At that point the procedure was complete. All catheters were removed, atrial septal sheath was exchanged for 9-Peruvian Hemaquet, intracardiac echo showed no pericardial effusion. There is still good flow in the pulmonary vein. The patient is going to be transferred to the recovery room. No incident report. The patient tolerated the procedure. Blood loss was minimal. FINDINGS 1. Electrocardiogram: At baseline the patient was in atrial fibrillation, post procedure the patient was in sinus rhythm. 2. Basic interval: Base cycle length was around 610. Post ablation she was around 980 milliseconds. AH at 92 and HV at 68 milliseconds. 3. Tachyarrhythmia: Atrial fibrillation was mapped and ablated. Atrial tachycardia was ablated. The ablation was successful. CONCLUSION Successful electrophysiology study, mapping, radiofrequency ablation of atrial fibrillation, left atrial tachycardia, pulmonary vein isolation, posterior ablation, mitral valve isolation, mitral line creation, roof line creation, floor line creation, left atrial tachycardia, and cardioversion. COMMENTS AND RECOMMENDATIONS The patient is going to be transferred to the telemetry unit. Will be observed and when stable can be discharged home. Avery Shelley MD Jul 20, 2017 11:54
--- NOTE | 2017-07-20 11:54 | PD.CARD ---
Atrial Fibrillation Ablation PROCEDURE DATE: Jul 20, 2017 PROCEDURES PERFORMED: 1. Electrophysiology study on Isuprel infusion 2. CS cannulation 3. 3-D mapping 4. Transseptal approach 5. Right and left heart catheterization 6. Intracardiac echo 7. Radiofrequency ablation of atrial fibrillation 8. Pulmonary vein isolation 9. Posterior wall ablation 10. Mitral valve isolation 11. Mitral line creation 12. Left atrial tachycardia ablation 13. Roof line creation 14. Floor line creation 15. Anterior wall ablation 16. Cardioversion INDICATIONS FOR THE PROCEDURE Ms. Ball is a 72-year-old female with atrial fibrillation, very symptomatic, on anticoagulation referred for electrophysiology study and ablation. The risks, the nature and the benefits of the procedure were clearly stated to her. The risks include pneumothorax, cardiac perforation, stroke, need for open heart surgery and even . The patient understood and agreed to proceed. DESCRIPTION OF THE PROCEDURE IN DETAIL As written informed consent was obtained prior to esophageal echocardiogram, the patient was kept on the table where she was prepped and draped in the usual sterile fashion. Conscious sedation was initiated and maintained throughout the procedure by the anesthesiologist. Once sedation was verified, the right and left inguinal areas were anesthetized with 2% Xylocaine. Using modified Seldinger technique, the left femoral vein was cannulated on three occasions, three guidewires were advanced. Over the wire a 6, 7 and a 10-Finnish Hemaquet were advanced. Then the left femoral artery was cannulated on one occasion, one guidewire was advanced. Over the wire a 4-Finnish Hemaquet was advanced. Then the right femoral vein was cannulated on one occasion, one guidewire was advanced. Over the wire a 8-Finnish Hemaquet was advanced. Then under fluoroscopic guidance through the 6 and 7-Finnish Hemaquet, two 5-Finnish Olinda curved quadripolar electrophysiology catheters were advanced and placed around the His as well as coronary sinus. Basic interval was measured. The patient was in atrial fibrillation. Through the 10-Finnish Hemaquet, a [employer]amb[employer] Meek AcuNav intracardiac echo catheter was advanced and placed at the right atrium. Multiple view was obtained. There is no pericardial effusion, pulmonary vein was seen, atrial septal was visualized. Then the 8-Finnish Hemaquet in the right femoral vein was exchanged for [employer] transseptal sheath that was placed all the way to the superior vena cava. Through the sheath a Capo needle was advanced, then the sheath, the dilator and the needle were progressed until foci engaged. Once engaged, the needle was advanced. RF was delivered for 2 seconds. I was able to cross into the left atrium. Once the needle crossed, the dilator was advanced. Once the dilator crossed, the sheath was advanced. Once the sheath crossed, the dilator and the needle were removed. At this point I did flood the system and fluid movement was seen in the left atrium the indicates the sheath is in good position. The patient already received 10,000 units of heparin. The goal is to keep an ACT around 350 during ablation. Then through the sheath a St. Héctor 20 pulse circumferential catheter was advanced. Using [employer] endocardial solution mapping system, a two-dimensional configuration of the left atrium was obtained. Points were taken at the left superior and inferior veins, right superior and inferior veins, mitral valve, and appendages. Then through the sheath a St. Héctor TactiCath 65cm 3.5mm irrigated tipped mapping and radiofrequency ablation catheter was advanced. Esophageal probe was placed temperature monitoring during ablation. When it increased to 0.5 degrees Celsius above baseline, I moved to a different area of the atrium. First I did isolate the left superior and inferior vein. I did make a big [place] around the veins. Posterior was ablated. Then a roof line was created, a floor line was created, a mitral line was isolated, then the mitral valve was isolated. At that point the patient was in left atrial tachycardia. I did create a line from the floor to the roof area, passing by the left atrial appendage. Then the right superior and inferior veins were isolated. I did remap the atrium. There is no significant signal in the atrium. At this point I decided to proceed with cardioversion. A 200 sync biphasic joule was delivered that converted the patient into sinus rhythm. At that point I did advance the circumferential catheter again into the vein. There was no signal into the vein, pacing from the vein showed no conduction to the atrium. Isuprel infusion was initiated at 10 mcg for 15 minutes. No tachyarrhythmia was induced, post Isuprel no tachyarrhythmia was induced. At that point the procedure was complete. All catheters were removed, atrial septal sheath was exchanged for 9-Finnish Hemaquet, intracardiac echo showed no pericardial effusion. There is still good flow in the pulmonary vein. The patient is going to be transferred to the recovery room. No incident report. The patient tolerated the procedure. Blood loss was minimal. FINDINGS 1. Electrocardiogram: At baseline the patient was in atrial fibrillation, post procedure the patient was in sinus rhythm. 2. Basic interval: Base cycle length was around 610. Post ablation she was around 980 milliseconds. AH at 92 and HV at 68 milliseconds. 3. Tachyarrhythmia: Atrial fibrillation was mapped and ablated. Atrial tachycardia was ablated. The ablation was successful. CONCLUSION Successful electrophysiology study, mapping, radiofrequency ablation of atrial fibrillation, left atrial tachycardia, pulmonary vein isolation, posterior ablation, mitral valve isolation, mitral line creation, roof line creation, floor line creation, left atrial tachycardia, and cardioversion. COMMENTS AND RECOMMENDATIONS The patient is going to be transferred to the telemetry unit. Will be observed and when stable can be discharged home. Avery Shelley MD Jul 20, 2017 11:54
--- NOTE | 2017-07-20 11:54 | PD.CARD ---
Atrial Fibrillation Ablation PROCEDURE DATE: Jul 20, 2017 PROCEDURES PERFORMED: 1. Electrophysiology study on Isuprel infusion 2. CS cannulation 3. 3-D mapping 4. Transseptal approach 5. Right and left heart catheterization 6. Intracardiac echo 7. Radiofrequency ablation of atrial fibrillation 8. Pulmonary vein isolation 9. Posterior wall ablation 10. Mitral valve isolation 11. Mitral line creation 12. Left atrial tachycardia ablation 13. Roof line creation 14. Floor line creation 15. Anterior wall ablation 16. Cardioversion INDICATIONS FOR THE PROCEDURE Ms. Blal is a 72-year-old female with atrial fibrillation, very symptomatic, on anticoagulation referred for electrophysiology study and ablation. The risks, the nature and the benefits of the procedure were clearly stated to her. The risks include pneumothorax, cardiac perforation, stroke, need for open heart surgery and even . The patient understood and agreed to proceed. DESCRIPTION OF THE PROCEDURE IN DETAIL As written informed consent was obtained prior to esophageal echocardiogram, the patient was kept on the table where she was prepped and draped in the usual sterile fashion. Conscious sedation was initiated and maintained throughout the procedure by the anesthesiologist. Once sedation was verified, the right and left inguinal areas were anesthetized with 2% Xylocaine. Using modified Seldinger technique, the left femoral vein was cannulated on three occasions, three guidewires were advanced. Over the wire a 6, 7 and a 10-Erit[place]an Hemaquet were advanced. Then the left femoral artery was cannulated on one occasion, one guidewire was advanced. Over the wire a 4-Erit[place]an Hemaquet was advanced. Then the right femoral vein was cannulated on one occasion, one guidewire was advanced. Over the wire a 8-E[place] Hemaquet was advanced. Then under fluoroscopic guidance through the 6 and 7-Erit[place]an Hemaquet, two 5-Eritrean Olinda curved quadripolar electrophysiology catheters were advanced and placed around the His as well as coronary sinus. Basic interval was measured. The patient was in atrial fibrillation. Through the 10-E[place]an Hemaquet, a [employer] Meek AcuNav intracardiac echo catheter was advanced and placed at the right atrium. Multiple view was obtained. There is no pericardial effusion, pulmonary vein was seen, atrial septal was visualized. Then the 8-E[place]an Hemaquet in the right femoral vein was exchanged for [email or web address] transseptal sheath that was placed all the way to the superior vena cava. Through the sheath a Capo needle was advanced, then the sheath, the dilator and the needle were progressed until foci engaged. Once engaged, the needle was advanced. RF was delivered for 2 seconds. I was able to cross into the left atrium. Once the needle crossed, the dilator was advanced. Once the dilator crossed, the sheath was advanced. Once the sheath crossed, the dilator and the needle were removed. At this point I did flood the system and fluid movement was seen in the left atrium the indicates the sheath is in good position. The patient already received 10,000 units of heparin. The goal is to keep an ACT around 350 during ablation. Then through the sheath a St. Héctor 20 pulse circumferential catheter was advanced. Using Cennox endocardial solution mapping system, a two-dimensional configuration of the left atrium was obtained. Points were taken at the left superior and inferior veins, right superior and inferior veins, mitral valve, and appendages. Then through the sheath a St. Héctor TactiCath 65cm 3.5mm irrigated tipped mapping and radiofrequency ablation catheter was advanced. Esophageal probe was placed temperature monitoring during ablation. When it increased to 0.5 degrees Celsius above baseline, I moved to a different area of the atrium. First I did isolate the left superior and inferior vein. I did make a big tetlin around the veins. Posterior was ablated. Then a roof line was created, a floor line was created, a mitral line was isolated, then the mitral valve was isolated. At that point the patient was in left atrial tachycardia. I did create a line from the floor to the roof area, passing by the left atrial appendage. Then the right superior and inferior veins were isolated. I did remap the atrium. There is no significant signal in the atrium. At this point I decided to proceed with cardioversion. A 200 sync biphasic joule was delivered that converted the patient into sinus rhythm. At that point I did advance the circumferential catheter again into the vein. There was no signal into the vein, pacing from the vein showed no conduction to the atrium. Isuprel infusion was initiated at 10 mcg for 15 minutes. No tachyarrhythmia was induced, post Isuprel no tachyarrhythmia was induced. At that point the procedure was complete. All catheters were removed, atrial septal sheath was exchanged for 9-Erit[place]an Hemaquet, intracardiac echo showed no pericardial effusion. There is still good flow in the pulmonary vein. The patient is going to be transferred to the recovery room. No incident report. The patient tolerated the procedure. Blood loss was minimal. FINDINGS 1. Electrocardiogram: At baseline the patient was in atrial fibrillation, post procedure the patient was in sinus rhythm. 2. Basic interval: Base cycle length was around 610. Post ablation she was around 980 milliseconds. AH at 92 and HV at 68 milliseconds. 3. Tachyarrhythmia: Atrial fibrillation was mapped and ablated. Atrial tachycardia was ablated. The ablation was successful. CONCLUSION Successful electrophysiology study, mapping, radiofrequency ablation of atrial fibrillation, left atrial tachycardia, pulmonary vein isolation, posterior ablation, mitral valve isolation, mitral line creation, roof line creation, floor line creation, left atrial tachycardia, and cardioversion. COMMENTS AND RECOMMENDATIONS The patient is going to be transferred to the telemetry unit. Will be observed and when stable can be discharged home. Aevry Shelley MD Jul 20, 2017 11:54
[2017-07-20] MEDS ORDERED: FUROSEMIDE 40 MG/4 ML VIAL ONE (11:55)
[2017-07-20] MEDS ORDERED: LORazepam 2 MG/ML VIAL IV PUSH PRN (12:00)
[2017-07-20] MEDS ORDERED: ONDANSETRON HCL 4 MG/2 ML VIAL IV PUSH PRN (12:00)
[2017-07-20] MEDS ORDERED: BACITRACIN OINT 0.9 GM PKT TOP ONE (12:00)
[2017-07-20] MEDS ORDERED: METOCLOPRAMIDE HCL 10 MG/2 ML VIAL IV PUSH PRN (12:00)
[2017-07-20] MEDS ORDERED: SODIUM CHLOR 0.9% 250 ML INJ 250 ML IV PRN (12:00)
[2017-07-20] MEDS ORDERED: LIDOCAINE HCL 1% 50 ML VIAL INFIL PRN (12:00)
[2017-07-20] MEDS ORDERED: ATROPINE SULFATE 1 MG/ML VIAL IV PUSH PRN (12:00)
[2017-07-20] MEDS ORDERED: oxyCODONE/ACETAMINOPHEN 5 MG/325 MG TAB PO PRN ×2 (12:00)
[2017-07-20] MEDS ORDERED: DO NOT ADM ANY ANTICOAGULANT DRUGS PRN (12:15)
--- NOTE | 2017-07-20 12:15 | EKG ---
Date Performed: 07/20/2017 Time Performed: 08:53:42 PTAGE: 72 years EKG: Atrial fibrillation. Right bundle branch block Abnormal ECG NO PREVIOUS TRACING DOCTOR: Brian Jean-Baptiste Interpretating Date/Time 07/20/2017 12:12:48
[2017-07-20] MEDS ORDERED: *MEPERIDINE 25 MG INJ VIAL PERIprocedural Use ONLY ONE (13:12)
--- NOTE | 2017-07-20 16:07 | ECHRPT ---
Indication: Paroxysmal atrial fibrillation CONCLUSIONS A complete two-dimensional, color flow and Doppler transesophageal study is performed. Agitated saline was administered to enhance Doppler interrogation. BP: / HR: Rhythm: Technical Quality: Medications Sedation was administered by anesthesia Complications There were no complications prior to, during from the transesophageal echocardio gram.. Proc. Components FINDINGS LEFT VENTRICLE Normal left ventricular size and wall thickness. The left ventricular systolic function is normal wi th an estimated ejection fraction in the range of 60-65%. Left ventricular diastolic function parameters a re normal. LEFT ATRIUM The left atrial size is mildly dilated. ATRIAL APPENDAGES Normal left atrial appendage size with no evidence of thrombus formation. ATRIAL SEPTUM Normal atrial septal thickness. No atrial level shunt is demonstrated by color flow Doppler interrogation. No atrial level shunt is demonstrated by color flow Doppler or agitated saline imaging. AORTA The aortic root and proximal ascending aorta are normal in size on limited imaging. MITRAL VALVE Structurally normal mitral valve. [id number] mitral valve regurgitation. AORTIC VALVE Trileaflet aortic valve. No aortic valve stenosis or regurgitation. TRICUSPID VALVE Structurally normal tricuspid valve. No tricuspid valve stenosis or regurgitation. PERICADIUM There is no pericardial effusion. Avery Shelley MD (Electronically Signed) Final Date:20 July 2017 16:06
[2017-07-20] MEDS: AMIODARONE 200 MG TAB PO SCH ×2 (21:00→21:12)
[2017-07-20] MEDS: LOSARTAN 50 MG TAB PO SCH (21:12)
[2017-07-20] MEDS: APIXABAN 5 MG TABLET PO SCH (21:12)
[2017-07-20] MEDS: FUROSEMIDE 20 MG TAB PO SCH (21:13)
[2017-07-20] MEDS: METOPROLOL TARTRATE 25 MG TAB PO SCH (21:28)
[2017-07-21] VITALS (16 sets, daily range): BP systolic 129–134; BP diastolic 65–79; PULSE 66–94; RESP 16–18; TEMP 97.5–98.8; O2SAT 94–97
[2017-07-21] MEDS: APIXABAN 5 MG TABLET PO SCH (08:35)
[2017-07-21] MEDS: METOPROLOL TARTRATE 25 MG TAB PO SCH (08:36)
[2017-07-21] MEDS: LOSARTAN 50 MG TAB PO SCH (08:37)
[2017-07-21] MEDS: AMIODARONE 200 MG TAB PO SCH (08:39)
[2017-07-21] MEDS: FUROSEMIDE 20 MG TAB PO SCH (08:39)
[2017-07-21] MEDS ORDERED: TRIAMTERENE/HCTZ 37.5 MG/25 MG TAB PO SCH (09:00)
[2017-07-21] MEDS ORDERED: NON-FORMULARY DRUG (Levothyroxine 175 MCG) PO SCH (09:00)
[2017-07-21] MEDS ORDERED: CYANOCOBALAMIN 1,000 MCG TAB PO SCH (09:00)
[2017-07-21] MEDS ORDERED: LEVOTHYROXINE SODIUM 75 MCG TAB PO SCH (09:00)
[2017-07-21] MEDS ORDERED: MELOXICAM 7.5 MG TAB PO SCH (09:00)
[2017-07-21] MEDS ORDERED: DILTIAZEM-CD 300 MG CAP ER PO SCH (09:00)
[2017-07-21] MEDS ORDERED: MULTIVITAMIN TAB PO SCH (09:00)
[2017-07-21] MEDS ORDERED: LEVOTHYROXINE SODIUM 100 MCG TAB PO SCH (09:00)
[2017-07-21] MEDS ORDERED: DULoxetine HCl DR 60 MG CAP PO SCH (09:00)
--- NOTE | 2017-07-21 14:11 | HHI.PR ---
Subjective Remarks Feeling fine Objective Vital Signs Date Time Temp Pulse Resp B/P (MAP) Pulse Ox O2 Delivery O2 Flow Rate FiO2 07/21/17 13:09 72 07/21/17 12:00 71 07/21/17 11:20 98.8 68 18 129/65 (86) 97 07/21/17 11:00 66 07/21/17 10:18 67 07/21/17 09:00 80 07/21/17 08:36 69 07/21/17 07:05 97.5 73 18 134/79 (97) 94 07/21/17 07:05 71 07/21/17 06:00 84 07/21/17 05:00 80 07/21/17 04:00 80 07/21/17 03:00 78 07/21/17 03:00 94 16 131/77 (95) 94 07/21/17 02:00 78 07/21/17 01:00 86 07/21/17 00:00 82 07/20/17 23:00 82 07/20/17 23:00 97.9 87 14 134/75 (94) 94 07/20/17 22:00 92 07/20/17 21:00 90 07/20/17 20:00 97.5 84 16 140/74 (96) 94 07/20/17 20:00 86 07/20/17 19:00 90 07/20/17 18:36 98.0 98 18 149/74 (99) 98 07/20/17 17:37 98.0 86 18 151/76 (101) 97 07/20/17 16:37 98.0 86 18 140/80 (100) 97 07/20/17 15:50 98.0 72 18 140/77 (98) 96 07/20/17 15:29 98.0 72 18 140/77 (98) 97 07/20/17 14:37 98.0 74 18 145/71 (95) 98 07/20/17 14:24 98.0 73 18 136/72 (93) 96 07/20/17 14:22 98.0 73 18 136/72 (93) 96 I/O 07/20/17 07/20/17 07/20/17 07/21/17 07/21/17 07/21/17 06:59 14:59 22:59 06:59 14:59 22:59 Intake Total 760 ml 240 ml Output Total 800 ml 850 ml 300 ml Balance -800 ml -90 ml -60 ml Intake Oral 760 ml 240 ml Output Urine Total 800 ml 850 ml 300 ml # Bowel Movements 1 Result Diagram: 07/20/17 0835 07/20/17834 Imaging Alert, fully oriented Lungs: Ventilated Heart: S1, S2 regular, no gallop Abdomen: soft, no mass Ext: no edema Current Medications Medications (Trade) Dose Ordered Sig/Taryn Route Start Time Stop Time Status Last Admin Sodium Chloride 500 ml @ 30 mls/hr [id number] IV 07/20/17 09:00 (Ativan) 1 mg CARE AIDE SL 07/20/17 09:15 07/23/17 09:14 Lactated Ringer's 1,000 ml @ 30 mls/hr Q24H PRN IV 07/20/17 09:15 07/23/17 09:14 Sodium Chloride 500 ml @ 30 mls/hr [id number] PRN IV 07/20/17 09:15 07/23/17 09:14 (Lopressor) 25 mg CARE AIDE PRN PO 07/20/17 09:15 07/23/17 09:14 (Betadine 5% Antisepsis Kit) 1 applic CARE AIDE PRN EACH NARE 07/20/17 09:15 07/23/17 09:14 (Chlorhexidine 2% Cloth) 3 pack CARE AIDE PRN TOPICAL 07/20/17 09:15 07/23/17 09:14 (NovoLIN R INJ) See Protocol Table ... CARE AIDE PRN SQ 07/20/17 09:15 07/23/17 09:14 (Percocet 5-325 Mg) 1 tab Q4H PRN PO 07/20/17 12:00 (Percocet 5-325 Mg) 2 tab Q4H PRN PO 07/20/17 12:00 (Atropine Inj) 0.5 mg UNSCH PRN IV PUSH 07/20/17 12:00 (Reglan Inj) 10 mg Q4H PRN IV PUSH 07/20/17 12:00 (Zofran Inj) 4 mg Q4H PRN IV PUSH 07/20/17 12:00 (Eliquis) 5 mg BID PO 07/20/17 21:00 07/21/17 08:35 (Vitamin B12) 1,000 mcg DAILY PO 07/21/17 09:00 07/21/17 08:38 (Cymbalta Dr) 60 mg DAILY PO 07/21/17 09:00 07/21/17 08:36 (Lasix) 20 mg BID PO 07/20/17 21:00 07/21/17 08:39 (Cozaar) 50 mg BID PO 07/20/17 21:00 07/21/17 08:37 (Mobic) 7.5 mg DAILY PO 07/21/17 09:00 07/21/17 08:40 (Lopressor) 25 mg BID PO 07/20/17 21:00 07/21/17 08:36 (Maxzide 37.5-25 Mg) 1 tab DAILY PO 07/21/17 09:00 07/21/17 08:38 (Theragran) 1 tab DAILY PO 07/21/17 09:00 07/21/17 08:37 (Cordarone) 400 mg BID PO 07/20/17 12:00 07/27/17 21:00 07/21/17 08:39 (Cordarone) 200 mg DAILY PO 07/28/17 09:00 (Synthroid) 100 mcg DAILY PO 07/21/17 09:00 07/21/17 08:37 (Synthroid) 75 mcg DAILY PO 07/21/17 09:00 07/21/17 08:37 Assessment and Plan Problem List: (1) Atrial fibrillation ICD Codes: I48.91 - Unspecified atrial fibrillation Plan: SP ablation Doing well Will be DH Follow up as scheduled (2) Palpitations ICD Codes: R00.2 - Palpitations Plan: No episode reported Avery Shelley MD Jul 21, 2017 14:10
--- NOTE | 2017-07-21 14:11 | HHI.PR ---
Subjective Remarks Feeling fine Objective Vital Signs Date Time Temp Pulse Resp B/P (MAP) Pulse Ox O2 Delivery O2 Flow Rate FiO2 07/21/17 13:09 72 07/21/17 12:00 71 07/21/17 11:20 98.8 68 18 129/65 (86) 97 07/21/17 11:00 66 07/21/17 10:18 67 07/21/17 09:00 80 07/21/17 08:36 69 07/21/17 07:05 97.5 73 18 134/79 (97) 94 07/21/17 07:05 71 07/21/17 06:00 84 07/21/17 05:00 80 07/21/17 04:00 80 07/21/17 03:00 78 07/21/17 03:00 94 16 131/77 (95) 94 07/21/17 02:00 78 07/21/17 01:00 86 07/21/17 00:00 82 07/20/17 23:00 82 07/20/17 23:00 97.9 87 14 134/75 (94) 94 07/20/17 22:00 92 07/20/17 21:00 90 07/20/17 20:00 97.5 84 16 140/74 (96) 94 07/20/17 20:00 86 07/20/17 19:00 90 07/20/17 18:36 98.0 98 18 149/74 (99) 98 07/20/17 17:37 98.0 86 18 151/76 (101) 97 07/20/17 16:37 98.0 86 18 140/80 (100) 97 07/20/17 15:50 98.0 72 18 140/77 (98) 96 07/20/17 15:29 98.0 72 18 140/77 (98) 97 07/20/17 14:37 98.0 74 18 145/71 (95) 98 07/20/17 14:24 98.0 73 18 136/72 (93) 96 07/20/17 14:22 98.0 73 18 136/72 (93) 96 I/O 07/20/17 07/20/17 07/20/17 07/21/17 07/21/17 07/21/17 06:59 14:59 22:59 06:59 14:59 22:59 Intake Total 760 ml 240 ml Output Total 800 ml 850 ml 300 ml Balance -800 ml -90 ml -60 ml Intake Oral 760 ml 240 ml Output Urine Total 800 ml 850 ml 300 ml # Bowel Movements 1 Result Diagram: 07/20/17 0835 07/20/17834 Imaging Alert, fully oriented Lungs: Ventilated Heart: S1, S2 regular, no gallop Abdomen: soft, no mass Ext: no edema Current Medications Medications (Trade) Dose Ordered Sig/Taryn Route Start Time Stop Time Status Last Admin Sodium Chloride 500 ml @ 30 mls/hr [id number] IV 07/20/17 09:00 (Ativan) 1 mg ION EXCHANGE OPERATOR SL 07/20/17 09:15 07/23/17 09:14 Lactated Ringer's 1,000 ml @ 30 mls/hr Q24H PRN IV 07/20/17 09:15 07/23/17 09:14 Sodium Chloride 500 ml @ 30 mls/hr [id number] PRN IV 07/20/17 09:15 07/23/17 09:14 (Lopressor) 25 mg ION EXCHANGE OPERATOR PRN PO 07/20/17 09:15 07/23/17 09:14 (Betadine 5% Antisepsis Kit) 1 applic ION EXCHANGE OPERATOR PRN EACH NARE 07/20/17 09:15 07/23/17 09:14 (Chlorhexidine 2% Cloth) 3 pack ION EXCHANGE OPERATOR PRN TOPICAL 07/20/17 09:15 07/23/17 09:14 (NovoLIN R INJ) See Protocol Table ... ION EXCHANGE OPERATOR PRN SQ 07/20/17 09:15 07/23/17 09:14 (Percocet 5-325 Mg) 1 tab Q4H PRN PO 07/20/17 12:00 (Percocet 5-325 Mg) 2 tab Q4H PRN PO 07/20/17 12:00 (Atropine Inj) 0.5 mg UNSCH PRN IV PUSH 07/20/17 12:00 (Reglan Inj) 10 mg Q4H PRN IV PUSH 07/20/17 12:00 (Zofran Inj) 4 mg Q4H PRN IV PUSH 07/20/17 12:00 (Eliquis) 5 mg BID PO 07/20/17 21:00 07/21/17 08:35 (Vitamin B12) 1,000 mcg DAILY PO 07/21/17 09:00 07/21/17 08:38 (Cymbalta Dr) 60 mg DAILY PO 07/21/17 09:00 07/21/17 08:36 (Lasix) 20 mg BID PO 07/20/17 21:00 07/21/17 08:39 (Cozaar) 50 mg BID PO 07/20/17 21:00 07/21/17 08:37 (Mobic) 7.5 mg DAILY PO 07/21/17 09:00 07/21/17 08:40 (Lopressor) 25 mg BID PO 07/20/17 21:00 07/21/17 08:36 (Maxzide 37.5-25 Mg) 1 tab DAILY PO 07/21/17 09:00 07/21/17 08:38 (Theragran) 1 tab DAILY PO 07/21/17 09:00 07/21/17 08:37 (Cordarone) 400 mg BID PO 07/20/17 12:00 07/27/17 21:00 07/21/17 08:39 (Cordarone) 200 mg DAILY PO 07/28/17 09:00 (Synthroid) 100 mcg DAILY PO 07/21/17 09:00 07/21/17 08:37 (Synthroid) 75 mcg DAILY PO 07/21/17 09:00 07/21/17 08:37 Assessment and Plan Problem List: (1) Atrial fibrillation ICD Codes: I48.91 - Unspecified atrial fibrillation Plan: SP ablation Doing well Will be DH Follow up as scheduled (2) Palpitations ICD Codes: R00.2 - Palpitations Plan: No episode reported Avery Shelley MD Jul 21, 2017 14:10
--- NOTE | 2017-07-21 14:11 | HHI.PR ---
Subjective Remarks Feeling fine Objective Vital Signs Date Time Temp Pulse Resp B/P (MAP) Pulse Ox O2 Delivery O2 Flow Rate FiO2 07/21/17 13:09 72 07/21/17 12:00 71 07/21/17 11:20 98.8 68 18 129/65 (86) 97 07/21/17 11:00 66 07/21/17 10:18 67 07/21/17 09:00 80 07/21/17 08:36 69 07/21/17 07:05 97.5 73 18 134/79 (97) 94 07/21/17 07:05 71 07/21/17 06:00 84 07/21/17 05:00 80 07/21/17 04:00 80 07/21/17 03:00 78 07/21/17 03:00 94 16 131/77 (95) 94 07/21/17 02:00 78 07/21/17 01:00 86 07/21/17 00:00 82 07/20/17 23:00 82 07/20/17 23:00 97.9 87 14 134/75 (94) 94 07/20/17 22:00 92 07/20/17 21:00 90 07/20/17 20:00 97.5 84 16 140/74 (96) 94 07/20/17 20:00 86 07/20/17 19:00 90 07/20/17 18:36 98.0 98 18 149/74 (99) 98 07/20/17 17:37 98.0 86 18 151/76 (101) 97 07/20/17 16:37 98.0 86 18 140/80 (100) 97 07/20/17 15:50 98.0 72 18 140/77 (98) 96 07/20/17 15:29 98.0 72 18 140/77 (98) 97 07/20/17 14:37 98.0 74 18 145/71 (95) 98 07/20/17 14:24 98.0 73 18 136/72 (93) 96 07/20/17 14:22 98.0 73 18 136/72 (93) 96 I/O 07/20/17 07/20/17 07/20/17 07/21/17 07/21/17 07/21/17 06:59 14:59 22:59 06:59 14:59 22:59 Intake Total 760 ml 240 ml Output Total 800 ml 850 ml 300 ml Balance -800 ml -90 ml -60 ml Intake Oral 760 ml 240 ml Output Urine Total 800 ml 850 ml 300 ml # Bowel Movements 1 Result Diagram: 07/20/17 0835 07/20/17834 Imaging Alert, fully oriented Lungs: Ventilated Heart: S1, S2 regular, no gallop Abdomen: soft, no mass Ext: no edema Current Medications Medications (Trade) Dose Ordered Sig/Taryn Route Start Time Stop Time Status Last Admin Sodium Chloride 500 ml @ 30 mls/hr [id number] IV 07/20/17 09:00 (Ativan) 1 mg SURGICAL GARMENT FITTER SL 07/20/17 09:15 07/23/17 09:14 Lactated Ringer's 1,000 ml @ 30 mls/hr Q24H PRN IV 07/20/17 09:15 07/23/17 09:14 Sodium Chloride 500 ml @ 30 mls/hr [id number] PRN IV 07/20/17 09:15 07/23/17 09:14 (Lopressor) 25 mg SURGICAL GARMENT FITTER PRN PO 07/20/17 09:15 07/23/17 09:14 (Betadine 5% Antisepsis Kit) 1 applic SURGICAL GARMENT FITTER PRN EACH NARE 07/20/17 09:15 07/23/17 09:14 (Chlorhexidine 2% Cloth) 3 pack SURGICAL GARMENT FITTER PRN TOPICAL 07/20/17 09:15 07/23/17 09:14 (NovoLIN R INJ) See Protocol Table ... SURGICAL GARMENT FITTER PRN SQ 07/20/17 09:15 07/23/17 09:14 (Percocet 5-325 Mg) 1 tab Q4H PRN PO 07/20/17 12:00 (Percocet 5-325 Mg) 2 tab Q4H PRN PO 07/20/17 12:00 (Atropine Inj) 0.5 mg UNSCH PRN IV PUSH 07/20/17 12:00 (Reglan Inj) 10 mg Q4H PRN IV PUSH 07/20/17 12:00 (Zofran Inj) 4 mg Q4H PRN IV PUSH 07/20/17 12:00 (Eliquis) 5 mg BID PO 07/20/17 21:00 07/21/17 08:35 (Vitamin B12) 1,000 mcg DAILY PO 07/21/17 09:00 07/21/17 08:38 (Cymbalta Dr) 60 mg DAILY PO 07/21/17 09:00 07/21/17 08:36 (Lasix) 20 mg BID PO 07/20/17 21:00 07/21/17 08:39 (Cozaar) 50 mg BID PO 07/20/17 21:00 07/21/17 08:37 (Mobic) 7.5 mg DAILY PO 07/21/17 09:00 07/21/17 08:40 (Lopressor) 25 mg BID PO 07/20/17 21:00 07/21/17 08:36 (Maxzide 37.5-25 Mg) 1 tab DAILY PO 07/21/17 09:00 07/21/17 08:38 (Theragran) 1 tab DAILY PO 07/21/17 09:00 07/21/17 08:37 (Cordarone) 400 mg BID PO 07/20/17 12:00 07/27/17 21:00 07/21/17 08:39 (Cordarone) 200 mg DAILY PO 07/28/17 09:00 (Synthroid) 100 mcg DAILY PO 07/21/17 09:00 07/21/17 08:37 (Synthroid) 75 mcg DAILY PO 07/21/17 09:00 07/21/17 08:37 Assessment and Plan Problem List: (1) Atrial fibrillation ICD Codes: I48.91 - Unspecified atrial fibrillation Plan: SP ablation Doing well Will be DH Follow up as scheduled (2) Palpitations ICD Codes: R00.2 - Palpitations Plan: No episode reported Avery Shelley MD Jul 21, 2017 14:10
[2017-07-21] MEDS ORDERED: AMIO200T PO ×2 (14:57)
--- NOTE | 2017-07-21 20:26 | EKG ---
Date Performed: 07/20/2017 Time Performed: 12:33:00 PTAGE: 72 years EKG: NORMAL Sinus rhythm RIGHT BUNDLE BRANCH BLOCK ABNORMAL ECG PREVIOUS TRACING : 07/20/2017 08.53 DOCTOR: Ngozi Ravi Interpretating Date/Time 07/21/2017 20:24:45
--- NOTE | 2017-07-21 20:27 | EKG ---
Date Performed: 07/21/2017 Time Performed: 06:07:06 PTAGE: 72 years EKG: Sinus rhythm Right bundle branch block Compared to prior tracing no significant change Abnormal ECG PREVIOUS TRACING : 07/20/2017 12.33 DOCTOR: Ngozi Ravi Interpretating Date/Time 07/21/2017 20:25:08
[2017-07-28] MEDS ORDERED: AMIODARONE 200 MG TAB PO SCH (09:00)
== END 2017-07-21 15:40 | disposition home or self-care (01) ==
LOC: HCAT 07:53 → HDIC 07:54 → HCIN 13:57 → HCAT 07-21 15:40
PROVIDERS: ATTEND Internal Medicine Interventional Cardiology
DX: I48.1 Persistent atrial fibrillation (principal); R00.1 Bradycardia, unspecified; I45.10 Unspecified right bundle-branch block; I10 Essential (primary) hypertension; Z79.01 Long term (current) use of anticoagulants
CPT/HCPCS: 00410; 80048; 85002; 85025; 85610; 85730; 86850; 86900; 86901; 92960; 93005; 93312; 93320; 93325; 93613; 93623; 93656; 93662; C1730; C1731; C1732; C1759; C1766; C2630; J1644; J1940; J1956; J2175; J2405; J2720; J3010